=== PATIENT | male | born 1995 ===

== ENCOUNTER 2018-03-25 00:57 | Emergency (ER) | payer SELFPAY ==
[2018-03-25 01:35] LABS: URINE AMORPHOUS SEDIMENT MODERATE /ul (<OCC)
--- NOTE | 2018-03-25 01:35 | C.PDOC ---
History Of Present Illness 22 year old male presents to the ER with a complaint of left lower abdominal pain for the past 3-4 days, associated with urinary frequency. Patient also reports pain to left flank which radiates to lower abdomen and groin. He he has a Hx of kidney stones and notes the pain feels similar. Patient has not taken anything for the pain. Denies testicular pain, penile pain, nausea, vomiting, fever, or Hx of hernia. Time Seen by Provider: 03/25/18 01:28 Chief Complaint (Nursing): Back Pain History Per: Patient History/Exam Limitations: no limitations Onset/Duration Of Symptoms: Days Current Symptoms Are (Timing): Still Present Quality Of Discomfort: Unable To Describe Previous Symptoms: None Associated Symptoms: None Exacerbating Factor(s): Nothing Recent travel outside of the [place]: No Past Medical History Reviewed: Historical Data, Nursing Documentation, Vital Signs Vital Signs: Last Vital Signs Temp 98 F 03/25/18 02:26 Pulse 88 03/25/18 04:02 Resp 18 03/25/18 04:02 BP 124/78 03/25/18 04:02 Pulse Ox 100 03/25/18 04:29 - Medical History PMH: Kidney Stones Family History: States: Unknown Family Hx - Social History Hx Alcohol Use: No Hx Substance Use: No - Immunization History Hx Tetanus Toxoid Vaccination: No Hx Influenza Vaccination: No Hx Pneumococcal Vaccination: No Review Of Systems Constitutional: Negative for: Fever, Chills Gastrointestinal: Positive for: Abdominal Pain. Negative for: Nausea, Vomiting Genitourinary: Positive for: Frequency. Negative for: Scrotal Pain, Penile Pain Physical Exam - Physical Exam Appears: Non-toxic Skin: Normal Color, Warm, Dry Head: Atraumatic, Normacephalic Eye(s): bilateral: Normal Inspection Oral Mucosa: Moist Neck: Normal ROM Chest: Symmetrical, No Tenderness Cardiovascular: Rhythm Regular, No Murmur Respiratory: Normal Breath Sounds, No Rales, No Rhonchi, No Wheezing Gastrointestinal/Abdominal: Soft, Tenderness (LLQ mild to deep palpation), No Distention, No Guarding, No Rebound, No Hernia Back: No CVA Tenderness Male Genital: Normal Inspection, No Testicular Tenderness, No Testicular Swelling, No Inguinal Tenderness, No Inguinal Swelling, No Scrotal Swelling Neurological/Psych: Oriented x3, Normal Speech, Other (No focal deficits) ED Course And Treatment - Laboratory Results Result Diagrams: 03/25/18 01:56 03/25/18 01:56 Lab Interpretation: No Acute Changes O2 Sat by Pulse Oximetry: 100 (room air) Pulse Ox Interpretation: Normal - CT Scan/US CT abd/pel Other Rad Studies (CT/US): Read By Radiologist, Radiology Report Reviewed CT/US Interpretation: EXAM: CT Abdomen and Pelvis Without Intravenous Contrast. CLINICAL HISTORY: 22 years old, male; Pain; Abdominal pain and other: Left flank groin. TECHNIQUE: Axial computed tomography images of the abdomen and pelvis without intravenous. contrast. All CT scans at this facility use one or more dose reduction techniques, viz.: automated. exposure control; ma/kV adjustment per patient size (including targeted exams where dose is. matched to indication; i.e. head); or iterative reconstruction technique. Coronal and sagittal. reformatted images were created and reviewed. COMPARISON: No relevant prior studies available. FINDINGS: Lung bases: Unremarkable. No mass. No consolidation. ABDOMEN: Liver: Unremarkable. Gallbladder and bile ducts: Unremarkable. No calcified stones. No ductal dilation. Pancreas: Unremarkable. No ductal dilation. Spleen: Unremarkable. No splenomegaly. Adrenals: Unremarkable. No mass. Kidneys and ureters: Nonobstructing stone mid left kidney. No stone in the right kidney or in either. ureter and no hydronephrosis. Stomach and bowel: Unremarkable. No obstruction. No mucosal thickening. PELVIS: Appendix: Normal appendix. Bladder: Unremarkable. No stones. Reproductive: Unremarkable as visualized. ABDOMEN and PELVIS: Intraperitoneal space: Unremarkable. No free air. No significant fluid collection. Bones/joints: No acute fracture. No dislocation. Soft tissues: Unremarkable. Vasculature: Unremarkable. No abdominal aortic aneurysm. Lymph nodes: Unremarkable. No enlarged lymph nodes. IMPRESSION: Nonobstructing stone mid left kidney. No stone in the right kidney or in either ureter and no. hydronephrosis. Medical Decision Making Medical Decision Making: Impression: 22 year old male with history of kidney stone has flank pain. exam performed with lamont Mccain, no testicular swelling or tenderness. Plan: * CT abd/pel * Blood work * Urinalysis * IV fluids * Toradol Labs reviewed and unremarkable CT abd/pel Result: Nonobstructing stone mid left kidney. No stone in the right kidney or in either ureter and no hydronephrosis. On re-evaluation patient was sitting on stretcher and reported feeling better, pain had much improved. I discussed results of labs and imaging and provided copy of reports. I advised rest, fluids and analgesics. Can follow up with urologist. All questions answered and there is agreement with the plan to discharge home with instructions. Patient is stable for discharge. Advised to return if symptoms persist or worsen. Disposition Counseled Patient/Family Regarding: Diagnosis, Need For Followup, Rx Given - Disposition Referrals: Mic Crespo Jr., MD [Staff Provider] - Disposition: HOME/ ROUTINE Disposition Time: 03:15 Condition: IMPROVED Additional Instructions: Follow up with your primary medical doctor or clinic in 2-5 days for further evaluation. Take medications as prescribed. Return to the emergency department at any time if symptoms persist or worsen. Prescriptions: Ibuprofen [Motrin] 600 mg PO Q8 #30 tab Tamsulosin [Flomax] 0.4 mg PO DAILY #10 cap Instructions: Kidney Stones (DC) Forms: [employer] (Amharic) - POA Present On Arrival: None - Clinical Impression Clinical Impression: Flank pain, Kidney stone - PA / PARKING [employer] / Resident Statement MD/DO has reviewed & agrees with the documentation as recorded. - Scribe Statement The provider has reviewed the documentation as recorded by the Scribe Vance Mccain All medical record entries made by the Scribe were at my direction and personally dictated by me. I have reviewed the chart and agree that the record accurately reflects my personal performance of the history, physical exam, medical decision making, and the department course for this patient. I have also personally directed, reviewed, and agree with the discharge instructions and disposition.
[2018-03-25 01:36] LABS: URINE BILIRUBIN NEGATIVE (NEGATIVE); URINE CLARITY SLIGHT-CLOUDY (Clear); URINE COLOR YELLOW (YELLOW); URINE GLUCOSE (UA) NEGATIVE (Normal)
[2018-03-25 01:37] LABS: URINE BLOOD NEGATIVE (NEGATIVE); URINE LEUKOCYTE ESTERASE NEGATIVE Leu/uL (Negative); URINE PROTEIN NEGATIVE (NEGATIVE); URINE UROBILINOGEN 0.2 mg/dL (0.2-1.0)
--- NOTE | 2018-03-25 01:38 | C.PDOC ---
Time Seen by Provider: 03/25/18 01:28 Chief Complaint (Nursing): Back Pain Past Medical History Vital Signs: Last Vital Signs Temp 97.8 F 03/25/18 01:04 Pulse 72 03/25/18 01:04 Resp 20 03/25/18 01:04 BP 146/72 03/25/18 01:04 Pulse Ox 100 03/25/18 01:04 - Medical History PMH: Kidney Stones - Social History Hx Alcohol Use: No Hx Substance Use: No - Immunization History Hx Tetanus Toxoid Vaccination: No Hx Influenza Vaccination: No Hx Pneumococcal Vaccination: No ED Course And Treatment O2 Sat by Pulse Oximetry: 100 Disposition - Disposition
[2018-03-25] MEDS ORDERED: Sodium Chloride 0.9% 1,000 ML IV ONE (01:39)
[2018-03-25 02:02] LABS: BASO % 0.7 % (0.0-2.0); EOS # 0.1 K/uL (0.0-0.7); EOS % 2.4 % (0.0-4.0); HEMOGLOBIN 14.7 g/dL (12.0-18.0); LYMPH # 2.5 K/uL (1.0-4.3); LYMPH % 46.1 % (20.0-40.0); MEAN CELL VOLUME 91.4 fL (80.0-94.0); MEAN CORPUSCULAR HEMOGLOBIN 32.3 pg (27.0-31.0); MEAN CORPUSCULAR HGB CONC 35.4 g/dL (33.0-37.0); MEAN PLATELET VOLUME 7.9 fL (7.2-11.7); MONO # 0.4 K/uL (0.0-0.8); MONO % 6.5 % (0.0-10.0); NEUT # 2.4 K/uL (1.8-7.0); NEUT % 44.3 % (50.0-75.0); NRBC % 0.1 % (0.0-2.0); RBC 4.53 Mil/uL (4.40-5.90); RED CELL DISTRIBUTION WIDTH 12.3 % (11.5-14.5); WHITE BLOOD COUNT 5.5 K/uL (4.8-10.8)
[2018-03-25] MEDS ORDERED: Sodium Chloride 0.9% 1,000 ML ONE (02:03)
[2018-03-25 02:13] LABS: ALB/GLOB RATIO 1.3 (1.0-2.1); ALBUMIN 4.5 g/dL (3.5-5.0); ALT/SGPT 18 U/L (21-72); AST/SGOT 29 U/L (17-59); BLOOD UREA NITROGEN 25 mg/dL (9-20); CALCIUM 9.1 mg/dl (8.6-10.4); GFR AFRICAN-AMERICAN > 60; GFR NON-AFRICAN AMERICAN > 60
[2018-03-25 02:27] VITALS: RESP 18; TEMP 98
[2018-03-25 04:03] VITALS: BP 124/78; PULSE 88
[2018-03-25 04:29] VITALS: O2SAT 100
--- NOTE | 2018-03-25 08:47 | CT ---
PROCEDURE: CT Abdomen and Pelvis without intravenous contrast HISTORY: left flank groin COMPARISON: None. TECHNIQUE: Without contrast.. Contrast Dose: 0. Radiation dose: Total exam DLP = Total exam DLP = 496.55 mGy-cm. This CT exam was performed using one or more of the following dose reduction techniques: Automated exposure control, adjustment of the mA and/or kV according to patient size, and/or use of iterative reconstruction technique. FINDINGS: LOWER THORAX: Unremarkable. LIVER: Normal size, contour and attenuation. Nodular calcification in the dome of the left hepatic lobe, likely granulomatous. No mass. No biliary dilatation. GALLBLADDER AND BILE DUCTS: Not visualized. Patient is status post cholecystectomy. Correlate with history. PANCREAS: Unremarkable. No gross lesion or ductal dilatation. SPLEEN: Unremarkable. ADRENALS: Unremarkable. No mass. KIDNEYS AND URETERS: 4 millimeter nonobstructing mid left renal calculus. No right renal calculus. No hydronephrosis. No renal mass. VASCULATURE: Unremarkable. No aortic aneurysm. BOWEL: Unremarkable. No obstruction. No gross mural thickening. APPENDIX: Unremarkable. Normal appendix. PERITONEUM: Unremarkable. No free fluid. No free air. LYMPH NODES: Unremarkable. No enlarged lymph nodes. BLADDER: Unremarkable. REPRODUCTIVE: Normal prostate BONES: No acute fracture. OTHER FINDINGS: None. IMPRESSION: 4 millimeter nonobstructing mid left renal calculus. No hydronephrosis. No evidence of urinary tract obstruction. Incidental hepatic nodular calcification likely granuloma. Status post cholecystectomy. Preliminary interpretation of this examination was reported by [email or web address] at 4 a.m. on 03/25/2018. There is concurrence of this report with the preliminary interpretation.
== END 2018-03-25 04:23 | disposition home or self-care (01) ==
LOC: C.ER 00:57
DX: N20.0 Calculus of kidney (principal); R10.32 Left lower quadrant pain
CPT/HCPCS: 74176; 80053; 81001; 85025; 96374; 99285; J1885; J7040